=== PATIENT | female | born 1955 | race Hispanic/Latino ===

== ENCOUNTER → 2025-09-06 11:03 | Outpatient (REF) | payer MEDICARE, OTHER, SELFPAY ==
[2025-09-06 11:33] VITALS: BP 133/55; BP_SYST 89
== END ==
LOC: RADI 11:03
PROVIDERS: ATTENDING PHYSICIAN Physical Medicine & Rehabilitation; FAMILY PHYSICIAN Internal Medicine
DX: M19.012 Primary osteoarthritis, left shoulder (principal); M25.512 Pain in left shoulder
CPT/HCPCS: 20600; 77012

== ENCOUNTER 2025-10-31 17:32 | Inpatient (IN) | payer MEDICARE, OTHER, SELFPAY ==
[2025-10-31] VITALS (10 sets, daily range): BP systolic 104–175; BP diastolic 44–134; BMI 28.5; BMI 27.6
--- NOTE | 2025-10-31 13:39 | ED.GENMED ---
History of Present Illness
General
Chief Complaint: Breathing Problem
Source: patient
Exam Limitations: none
Time Seen by Provider: 10/31/25 13:33
History of Present Illness
History of Present Illness:
Patient started over 1 week ago with shortness of breath. Was wheezing at the time. Placed on albuterol prednisone and doxycycline. Initially had some improvement however has digressed in the last few days. History of smoking. Quit 2 weeks ago.
No history of known lung disease
Past History
Past History
ED Past Medical History: HTN, Hypercholesterolemia and Hypothyroidism
ED Past Surgical History: Cholecystectomy, and Other
Review of Systems
Review of Systems
All Other Systems: Not applicable
Constitutional: Denies fever
Respiratory: Reports cough; Denies hemoptysis
Cardiac: Denies chest pain
ABD/GI: Denies abdominal pain
Phy Exam
Physical Exam
Physical Exam:
GENERAL: Alert and oriented in no apparent distress
EYE: Orbits normal.
NECK: Supple
CARDIAC: Regular rate and rhythm without any obvious murmurs.
LUNGS: Mildly tachypneic with speaking but no distress. Diffuse expiratory wheezing. No rales or rhonchi
ABDOMEN: Soft, without focal tenderness or distention
NEUROLOGICAL: Alert and oriented , grossly non-focal
SKIN: Warm and dry, no rash or lesion, no discoloration, skin intact.
MUSCULOSKELETAL: No edema,no deformity.Good color
PSYCH: Normal and appropriate interaction.
Scores
Heart Failure Risk
Heart Failure Risk Score: Not Applicable
Course
Orders/Labs/Results
Orders:
Orders
10/31/25 Breakfast
Sodium, 2 Gram
At Your Request: Full Participation
10/31/25 13:30
EKG [Electrocardiogram (*1)] Urgent
Reason for Study: Shortness of Breath
10/31/25 13:31
EKG- Treatment ONCE
10/31/25 13:38
Cardiac Monitoring- Treatment ONCE
IV Insert/Care/Rem.- Treatment PRN
Albuterol Sulfate [Ventolin Nebules] 7.5 mg INH R NOW STA
Dexamethasone Sod Phosphate [Decadron] 10 mg IV NOW STA
Ipratropium/Albuterol Sulfate [Duoneb] 3 ml INH R NOW STA
CR Chest Portable - 1 View Urgent
Comment:
Reason For Exam: Short of breath/hypoxia
Reason Study Needs to be Portable: Unable to Transport
10/31/25 13:44
Basic Metabolic Panel Urgent
COVID-19 Antigen Urgent
Source: Nasal Swab
Complete Blood Count/With Diff Urgent
NT-proBNP Urgent
Troponin I Urgent
Influenza A+B Rapid Molecular Urgent
MILA Source: Nasal Swab
Specimen Description:
10/31/25 17:11
Admit/Transfer Patient As Directed
Co-Sign Provider:
Level of Care: Inpatient admission
Assign to:: Medical/Surgical
Physician / Group: Htay
Diagnosis: Hypoxia, Bronchitis
Reason for Hospitalization: IV steroids, oxygen, nebs
Expected length of stay greater than two midnights?: Yes
ELOS- Estimated Length of Stay in days: 3
I certify the patient meets the requirements for IP care: Yes
10/31/25 17:14
PRN Pain Medication Management As Directed
May give lesser potent ordered pain med per pt: Yes
preference::
Protocol:: Medication orders for pain may be administered in a
manner that supports deferring to patient preference
when the pt is:
- Requesting an ordered lesser potent pain medication.
Least to most potent pain medications are defined
as: acetaminophen < NSAID < tramadol < opioids
(morphine, oxycodone, hydromorphone).
- Requesting a lesser dose of the same medication IF
ORDERED.
- Requesting a less intrusive route of administration
if both routes are prescribed by the provider (PO <
IV).
10/31/25 17:16
Code Status As Directed
Resuscitation Status: Full Code
10/31/25 18:17
Acetaminophen [Tylenol] 650 mg PO Q4HPRN PRN
Aspirin Low Dose EC [Aspir Low (Enteric Coated)] 81 mg PO QPM
Enoxaparin Sodium [Lovenox] 40 mg SC QPM
Ipratropium/Albuterol Sulfate [Duoneb] 3 ml INH R Q4HPRN PRN
Rosuvastatin Calcium [Crestor] 20 mg PO QPM
10/31/25 18:17
PULMONARY CONSULT Routine
Consulting Provider: Wilmer Christian
Was physician already notified: Yes
Activity As Directed
Activity Level: Out of Bed-Early Mobility
With Assistance
Vital Signs As Directed
Frequency: Per unit guidelines
Oxygen Therapy [O2 Therapy] [RESP] Routine
Titrate/Wean O2 to maintain O2 sat greater than (%): 92
Smoking Cessation Counseling [RESP] Routine
DX Deep Vein Thrombosis Video Routine
10/31/25 20:00
Ipratropium/Albuterol Sulfate [Duoneb] 3 ml INH R QID
10/31/25 22:00
Dexamethasone Sod Phosphate [Decadron] 4 mg IV Q8H
11/01/25 06:00
Basic Metabolic Panel IN AM
Complete Blood Count/No Diff IN AM
11/01/25 08:00
Losartan [Cozaar] 100 mg PO DAILY
Abnormal Lab Results
10/31/25
13:44
WBC 14.6 H 10^3/uL
(4.8-10.8)
Plt Count 494 H 10^3/uL
(130-400)
Abs Immat Gran (auto) 0.2 H 10^3/uL
(0-0.05)
Absolute Neuts (auto) 9.5 H 10^3/uL
(1.4-6.5)
Absolute Lymphs (auto) 3.6 H 10^3/uL
(1.2-3.4)
Absolute Monos (auto) 1.2 H 10^3/uL
(0.1-0.6)
Immature Gran % 1.2 H %
(0-0.5)
BUN 28 H mg/dl
(7-17)
Glucose 112 H mg/dl
(70-99)
10/31/25 13:44
10/31/25 13:44
Vital Signs
Initial and Last Documented VS:
Initial Vital Signs
Temp Pulse Resp BP Pulse Ox
98.2 F 86 15 157/134 92
10/31/25 12:01 10/31/25 12:01 10/31/25 12:01 10/31/25 12:01 10/31/25 12:01
Last Documented Vital Signs
Temp Pulse Resp BP Pulse Ox
98.7 F 95 18 104/68 92
10/31/25 18:25 10/31/25 18:25 10/31/25 18:25 10/31/25 18:25 10/31/25 18:25
MDM/Problems Addressed
Differential Diagnosis Includes:
Clinically highly doubt cardiac issue. Likely a primary pulmonary issue. Diffuse expiratory wheezing. Nebs and steroids. Very borderline pulse ox. May require admission.
*Radiology
Radiology exam reviewed: radiology read reviewed (Negative)
*Pulse Oximetry
SaO2: 94
Nasal Cannula flow liters per minute: 2
Oxygen Mode of Delivery: Room air
Patient hypoxic: yes
*EKG
Interpreted by ED Provider?: Yes
Interpretation: abnormal
Comparison EKG: no comparison EKG present
Heart Rate: 69
Rate: normal
Rhythm: sinus
[place]: normal axis
Interval: normal interval
QRS Pattern: normal QRS
Ischemia: T-wave inversion (Inferior lateral)
*Critical Care Note
Total Time (30-74mins, 75-104mins- exclusive of procedures): Not Applicable
Update Note
Update Note:
Rechecked. Still wheezing. Pulse ox 86%. Admission for further care
ED Attending Note
-
Portions of this chart may have been created with voice recognition software.� Occasional wrong word or��sound alike� substitutions may have occurred due to the inherent limitations of voice recognition software.
Discharge Plan
Departure
Patient Disposition: Admit
Date of Disposition: 10/31/25
Time of Disposition: 16:04
Presentation/result/management discussed w/ accepting MD/DO: Hospitalist
Discharge Problem:
Respiratory distress/hypoxia, Asthmatic bronchitis
Interventions
Interventions:
*General Assessment Last Done: 10/31/25 12:01
*Neglect/Abuse Screening Last Done: 10/31/25 12:01
*ED COVID-19 Vaccine History Last Done: 10/31/25 12:01
*ED Influenza Vaccine History Last Done: 10/31/25 12:01
*Risk Screen - Suicide (C-SSRS) Last Done: 10/31/25 12:01
*Nursing Disposition Last Done: 10/31/25 18:14
ED- Cardiac Assessment Last Done: 10/31/25 13:29
ED- Pulmonary Assessment Last Done: 10/31/25 13:30
Discharge Date and Time
Discharge Date/Time: 10/31/25 18:15
[2025-10-31] MEDS: DECADRON 10 MG IV (13:59)
[2025-10-31] MEDS: VENTOLIN NEBULES 7.5 MG INH (13:59)
[2025-10-31] MEDS: DUONEB 3 ML INH ×2 (13:59→19:22)
[2025-10-31 14:09] LABS: Hematocrit 44.3 % (37.0-47.0); Hemoglobin 14.9 g/dL (12.0-16.0); Mean Corp Hgb Conc. 33.6 g/dL (33.0-37.0); Mean Corpuscular Volume 90.4 fL (81.0-99.0); Nucleated Red Blood Cells % 0.2 %; Platelet Count 494 10^3/uL (130-400); Red Cell Dist. Width 13.6 % (11.5-14.5)
[2025-10-31 14:22] LABS: COVID-19 Antigen Negative (Negative)
[2025-10-31 14:25] LABS: Blood Urea Nitrogen 28 mg/dl (7-17); Calcium 9.4 mg/dl (8.4-10.2); Carbon Dioxide 30 mmol/L (22-30); Chloride 100 mmol/L (98-107); Estimated Creatinine Clearance 76 ml/min; Glucose 112 mg/dl (70-99); Sodium 137 mmol/L (135-145); eGFR > 60.00
[2025-10-31 14:32] LABS: Troponin I < 0.012 ng/ml
--- NOTE | 2025-10-31 16:45 | HPS.HSE ---
Family Physician
-
Family Physician: Moise Bonilla
Chief Complaint
-
Shortness of Breath
History of Present Illness
Patient is a 69 y/o female past medical history of hypertension, and hyperlipidemia who presents with shortness of breath. Patient reports symptoms have been ongoing for the past two weeks. She reports two urgent care visit at which time she was
prescribed steroids and antibiotics without any improvement. She reports slightly cough but describes it as dry cough. She denies fevers, sweats or chills.
Medical History
Past Medical History
Past Medical History: Reports Other
Additional Past Medical History:
Essential Hypertension
Hyperlipidemia
Past Surgical History: Reports Other
Additional Past Surgical History:
Cholecystectomy
Social History
Tobacco: Smoker (>40 Pack year history)
Family History
Family History: Not pertinent
Allergies / Home Medications
Allergies reflects when Allergies were last updated in [facility].
Home Medications with original date entered in [facility]
Allergy/Medication List:
Allergies
Allergy/AdvReac Type Severity Reaction Status Date / Time
vecuronium Allergy Anaphylaxis Verified 09/04/25 14:47
Home Medications
acetaminophen 500 mg tablet 1,000 mg PO DAILYPRN PRN MILD PAIN 10/31/25
albuterol sulfate 90 mcg/actuation aerosol inhaler 2 puff inhalation R Q4HPRN PRN SHORTNESS OF BREATH 10/31/25
aspirin 81 mg tablet,delayed release 81 mg PO QPM 10/31/25
doxycycline monohydrate 100 mg tablet 100 mg PO BID 10/31/25
duloxetine 30 mg capsule,delayed release 30 mg PO DAILY 10/31/25
olmesartan 40 mg-hydrochlorothiazide 12.5 mg tablet 1 tab PO DAILY 10/31/25
prednisone 10 mg tablet 10 mg PO DIRECTED 10/31/25
rosuvastatin 20 mg tablet 20 mg PO QPM 10/31/25
therapeutic multivitamin 1 tab PO DAILY 10/31/25
Review of Systems
-
A 12 point ROS was completed and negative except as noted: Yes
Constitutional: Denies Fever
Respiratory: Reports Trouble Breathing
Cardiac: Denies Chest Pain or Palpitations
Physical Exam
Vital Signs
Vital Signs
Temp Pulse Resp BP Pulse Ox
98.2 F 72 19 144/44 94
10/31/25 12:01 10/31/25 16:00 10/31/25 16:00 10/31/25 16:00 10/31/25 16:06
Physical Exam
General: Comfortable and Conversant
HEENT: Anicteric, Moist mucous membranes and Oxygen (Nasal Cannula)
Respiratory: Wheezes (Diffuse Expiratory) and Other (Reviewed with nursing who notes patient dropped pulse ox to 85% on room air following hour long neb)
Cardiac: S1/S2 and Regular Rhythm
GI: Soft and Non Distended
Musculoskeletal: No Clubbing, No Cyanosis and No Edema
Skin: Warm and Dry
Neuro: Awake, Alert, Oriented and Nonfocal/grossly intact
Psych: Calm
Laboratory Results
-
10/31/25 13:44
10/31/25 13:44
Laboratory Results
Troponin I < 0.012 ng/ml 10/31/25 13:44
Chest X-Ray:
Unremarkable portable chest
Data Reviewed
-
Diagnostic Radiology: Report Reviewed by me
Lab Data: Labs Reviewed by me
Impression/Plan
-
Acute Hypoxic Respiratory Insufficiency secondary to Acute Bronchitis
-Suspect underlying COPD as patient has long standing smoking history
-Consult Pulmonary
-Continue supplemental oxygen
-Continue Decadron 4mg IV q8h
-Continue DuoNeb QID and PRN
-Suspect leukocytosis is related to outpatient steroids - Hold on antibiotics
Essential Hypertension
-Continue olmesartan-hydrochlorothiazide
Hyperlipidemia
-Continue rosuvastatin
Tobacco Use Disorder
-Encourage smoking cessation
DVT proph: Lovenox
Code Status: Full Code
--- NOTE | 2025-10-31 16:47 | W.PN.UPDATE ---
Update Note
Progress Note Update
This note serves as an addendum to the H&P by professor of mathematics Christopher FERNANDES
HPI
69F heavy smoker quit 2 weeks ago whem she came down with URTI
PHX: HTN, Hypercholesterolemia and Hypothyroidism
Seen at ER:
- over 1 week ago with shortness of breath with wheezing at the time.
- Placed on albuterol prednisone and doxycycline with Initially had some improvement however has digressed in the last few days
- No HX known lung disease
Denied productive cough
Relevant VS
Temp Pulse Resp BP Pulse Ox
98.2 F 77 16 144/44 93
10/31/25 12:01 10/31/25 16:45 10/31/25 16:45 10/31/25 16:00 10/31/25 16:52
10/31/25
16:04 10/31/25
16:52
SaO2 85 93
Oxygen Mode of Delivery Room air
Nasal Cannula flow liters per minute 2
PE
Gen: NAD
HEENT: on 2L NC O2
Neck: supple
Lungs: b/l expiratory wheeze
Cor: RRR S1 S2
Abdomen:�soft benign
DRIER AND PULVERIZER TENDER: AAO3
MS: no edema
Psych:
Relevant Data
10/31/25
13:44
WBC 14.6 H
Plt Count 494 H
Creatinine 0.6
eGFR > 60.00
NEG Covid
NEG Flu A & B
CXR
Unremarkable portable chest
EKG
NORMAL SINUS RHYTHM
NONSPECIFIC T WAVE ABNORMALITY
ABNORMAL ECG
NO PREVIOUS ECGS AVAILABLE
Confirmed by LIMA WATTS MD ([id number]) on 10/31/2025 3:11:20 PM
NO prior hospitalist admission:
ASSESSMENT & PLAN
Acute bronchitis with bronchospasm
Associated acute hypoxic RI need 2 L O2
Suspect underlying COPD frpm heavy smoking
- failed improvement with PO Prednisone and PO Doxy
- non productive cough
- IV Decadron 4 mg q8H
- DuoNeb qid and PRN
- O2 to keep POx > 94
- Pul consulted
Heavy smoker
Quit 2 weeks ago and tolerating
- can have Nicotine patch if she wish
DVT Px: LMWH
Full Code:
IP MS
--- NOTE | 2025-10-31 17:37 | CM ---
Chart reviewed
Spoke with sister Cari on the phone
Pt lives on the second floor with elevator access
Sister lives across from her
Independent with ADLs and ambulation
No DME
PCP Moise Bonilla
[facility]
no hx of VN nor SNF
DCP is to return home no needs
Sister can provide transportation
Cm will continue to follow up for any dcp needs
[2025-10-31] MEDS: CRESTOR 20 MG PO (20:34)
[2025-10-31] MEDS: ASPIR LOW (ENTERIC COATED) 81 MG PO (20:34)
[2025-10-31] MEDS: LOVENOX 40 MG SC (20:34)
[2025-10-31] MEDS: DECADRON 4 MG IV (22:02)
[2025-11-01] MEDS: DECADRON 4 MG IV ×2 (05:11→14:24)
[2025-11-01 07:24] LABS: Hematocrit 42.4 % (37.0-47.0); Hemoglobin 14.4 g/dL (12.0-16.0); Mean Corp Hgb Conc. 34.0 g/dL (33.0-37.0); Mean Corpuscular Volume 91.8 fL (81.0-99.0); Platelet Count 456 10^3/uL (130-400); Red Cell Dist. Width 13.6 % (11.5-14.5)
[2025-11-01 07:30] VITALS: BP 153/78
[2025-11-01 07:58] LABS: Blood Urea Nitrogen 24 mg/dl (7-17); Calcium 9.3 mg/dl (8.4-10.2); Carbon Dioxide 26 mmol/L (22-30); Chloride 100 mmol/L (98-107); Estimated Creatinine Clearance 75 ml/min; Glucose 191 mg/dl (70-99); Potassium 4.4 mmol/L (3.5-5.1); Sodium 135 mmol/L (135-145); eGFR > 60.00
[2025-11-01] MEDS: COZAAR 100 MG PO (08:55)
[2025-11-01] MEDS: ORETIC 12.5 MG PO (08:55)
[2025-11-01] MEDS: DUONEB 3 ML INH ×2 (08:56→12:10)
--- NOTE | 2025-11-01 13:19 | W.PN.HOSP.TC ---
Today's Communication/Plan
-
DC planning
Assessment / Plan
Assessment / Plan
Acute Hypoxic Respiratory Insufficiency secondary to Acute Bronchitis
-Suspect underlying COPD as patient has long standing smoking history
-Consulted Pulmonary
- Off of oxygen today.
-Continue Decadron 4mg IV q8h
-Continue DuoNeb QID and PRN
-Suspect leukocytosis is related to outpatient steroids - Hold on antibiotics
Essential Hypertension
-Continue olmesartan-hydrochlorothiazide
Hyperlipidemia
-Continue rosuvastatin
Tobacco Use Disorder
-Encourage smoking cessation
DVT proph: Lovenox
Code Status: Full Code
Clinically much improved with resolution of hypoxia and symptoms. Will consider dc home depending after pulm eval.
Anticipated Discharge: Within 24 hours
Subjective/Interval History
-
Date of Service: November 01, 2025
Feeling improved. Inquiring about going home.
Denies shortness of breath. Off of oxygen.
Denies any cough today.
No chest pain or palpitations. No lower extremity edema. No fever or chills.
Objective Data
-
Labs:
Laboratory Results
11/01/25
06:25
WBC 13.9 H
Hgb 14.4
Hct 42.4
Plt Count 456 H
Sodium 135
Potassium 4.4
Chloride 100
Carbon Dioxide 26
BUN 24 H
Creatinine 0.6
Glucose 191 H
Calcium 9.3
Vital Signs:
Vital Signs
Temp Pulse Resp BP Pulse Ox
98.3 F 85 16 153/78 94
11/01/25 07:30 11/01/25 12:10 11/01/25 12:10 11/01/25 07:30 11/01/25 12:10
Physical Exam
-
General: No Apparent Distress
Respiratory: Non Labored Respirations; Negative Wheezes, Crackles or Accessory Resp Muscle Use
Cardiac: Regular Rhythm and S1/S2; Negative Tachycardic
GI: Soft
Neuro: AO x 3
Psych: Calm
Data Reviewed
-
Labs: Labs Reviewed by me
--- NOTE | 2025-11-01 14:56 | CON.PUL ---
Consultation
Consultation Request
Date/Time Consultation Requested: 11/01/2025
Date/Time Consultation Performed: 11/01/2025
Requesting Provider: Dr. Pittman
Performing Provider: Dr. Wilmer Espino
Reason for Consultation: Respiratory insufficiency/bronchospasm
Medical History
-
History of Present Illness:
69-year-old woman with past medical history of hypertension and hyperlipidemia who presented with shortness of breath.
Patient developed symptoms for the last 2 weeks. In the interim she went to the urgent care and she was prescribed antibiotics and steroids without improvement.
Cough is mainly dry.
Denies any fevers, night sweats, chills, hemoptysis or previously respiratory issues.
Denies history of asthma or COPD.
Patient is a smoker for the last 40 years. Ongoing.
Patient was found to be mildly bronchospastic.
Past Medical History
Past Medical History: Other (See assessment and plan)
Social History
Tobacco: Smoker
Alcohol: None
Drug: None
Family History
Family History: Reviewed & Not Pertinent
Allergies / Home Medications
Allergies
Allergy/AdvReac Type Severity Reaction Status Date / Time
vecuronium Allergy Anaphylaxis Verified 09/04/25 14:47
Home Medications
�Medication �Instructions �Recorded �Confirmed �Last Taken �Type
acetaminophen 500 mg tablet 1,000 mg PO DAILYPRN PRN MILD PAIN 10/31/25 10/31/25 10/28/25 History
albuterol sulfate 90 mcg/actuation 2 puff inhalation R Q4HPRN PRN 10/31/25 10/31/25 10/31/25 History
aerosol inhaler SHORTNESS OF BREATH
aspirin 81 mg tablet,delayed 81 mg PO QPM 10/31/25 10/31/25 10/30/25 History
release
duloxetine 30 mg capsule,delayed 30 mg PO DAILY 10/31/25 10/31/25 10/31/25 History
release
olmesartan 40 1 tab PO DAILY 10/31/25 10/31/25 10/31/25 History
mg-hydrochlorothiazide 12.5 mg
tablet
rosuvastatin 20 mg tablet 20 mg PO QPM 10/31/25 10/31/25 10/30/25 History
therapeutic multivitamin 1 tab PO DAILY 10/31/25 10/31/25 10/31/25 History
ipratropium 0.5 mg-albuterol 3 mg 3 ml inhalation TID #90 mL 11/01/25 Unknown Rx
(2.5 mg base)/3 mL nebulization
soln
pantoprazole 20 mg tablet,delayed 20 mg PO DAILY #14 tabs 11/01/25 Unknown Rx
release (Protonix)
prednisone 10 mg tablet 10 mg PO DIRECTED #30 tabs 11/01/25 Unknown Rx
Review of Systems
-
History Source: Patient
All other systems: Negative unless noted
Vitals / Labs / Diagnostic Testing
Vital Signs
Temp Pulse Resp BP Pulse Ox
98.3 F 85 16 153/78 94
11/01/25 07:30 11/01/25 12:10 11/01/25 12:10 11/01/25 07:30 11/01/25 12:10
Lab Data
11/01/25 06:25
11/01/25 06:25
Microbiology
10/31/25 13:44 Nasal Swab Influenza Types A & B ([facility]) - Final
Negative for Influenza A & B, NAAT
Negative results must be combined with clinical observations
and patient history.
Nucleic Acid Amplification test (NAAT)performed on the
[employer] platform.
Diagnostic Testing:
Physical Exam
-
HEENT: Normocephalic
Cardiovascular: S1/S2
Respiratory: Non-Labored Respirations
GI: Soft and Non Distended
Neurology: Awake, Alert, AO x 3 and No Motor Deficits
Skin: Warm
General: Comfortable
Assessment
-
Acute bronchitis/bronchospasm
Chest x-ray is clear-reviewed
Leukocytosis likely reactive
Tobacco abuse
Conditions present prior admission:
Hypertension
GERD
Hyperlipidemia
Tobacco abuse
Assessment and plan:
Admitted with shortness of breath and coughing-diagnosed with bronchitis. Possibly some bronchospastic component.
Symptoms have been ongoing for 2 weeks consistent with likely viral infection.
Did complete antibiotics from the urgent care.
Currently afebrile.
Has leukocytosis likely from prior steroids.
Currently lung exam is clear.
Denies shortness of breath
-
Recommend prednisone taper. 40 mg X 3 days, 30 mg X 3 days, 20 mg X 3 days and 10 mg X 3 days.
Can continue albuterol HFA as needed
Agree with nebulizer as needed-DuoNeb while she recovers.
Recommend outpatient pulmonary [id number] qualify for lung cancer screening.
Recommend outpatient pulmonary function testing to rule out COPD.
Smoking cessation strongly encouraged
My information has been left in the chart-instructed to call me back if there is symptoms recurrence. Sometimes inhaled corticosteroid may be needed. She understands that and agreeable.
-
Agree with discharge planning.
[2025-11-01 15:08] VITALS: BP 140/49
--- NOTE | 2025-11-01 16:02 | CM ---
Pt cleared for discharge to home today. No identified needs. IMM was given on 10/31/2025.
Sister provided transportation.
== END 2025-11-01 15:46 | disposition home or self-care (01) | DRG 203 ==
LOC: 4 EAST ACU 17:32
PROVIDERS: Physician Assistant Medical; ADMITTING PHYSICIAN Internal Medicine; ATTENDING PHYSICIAN Internal Medicine; CONSULT PHYSICIAN Internal Medicine Critical Care Medicine; EMERGENCY PHYSICIAN Emergency Medicine; FAMILY PHYSICIAN Internal Medicine
DX: J20.9 Acute bronchitis, unspecified (principal); F17.210 Nicotine dependence, cigarettes, uncomplicated; E03.9 Hypothyroidism, unspecified; E78.00 Pure hypercholesterolemia, unspecified; I10 Essential (primary) hypertension; R09.02 Hypoxemia; R06.89 Other abnormalities of breathing; K21.9 Gastro-esophageal reflux disease without esophagitis; Z60.2 Problems related to living alone; Z90.49 Acquired absence of other specified parts of digestive tract; Z88.8 Allergy status to other drugs, medicaments and biological substances; Z79.82 Long term (current) use of aspirin; Z11.52 Encounter for screening for COVID-19
CPT/HCPCS: 71045; 80048; 83880; 84484; 85025; 85027; 87502; 87811; 93005; 94640; 96374; 99285